=== PATIENT | female | born 1995 | race African-American/Black ===

== ENCOUNTER 2019-05-06 12:21 | Emergency (ER) | payer OTHER ==
[~2019-05-06] VITALS: Ht 177.8 cm; Wt 71.7 kg
[2019-05-06 12:27] VITALS: BP 142/73
[2019-05-06] MEDS ORDERED: FAMOTIDINE 20 MG TAB PO ONE (12:45)
[2019-05-06] MEDS ORDERED: PANTOPRAZOLE 40 MG TABEC PO ONE (12:45)
[2019-05-06] MEDS ORDERED: DICYCLOMINE HCL LIQUID 10 MG/5 ML UDC PO ONE (12:45)
--- NOTE | 2019-05-06 12:50 | NUR ---
C/O INTERMITTENT EPIGASTRIC BURNING PAIN X >1 WK DENIES N/V BUT ADMITS TO WATERY STOOLS. DENIES nausea and vomiting; SKIN IS PINK/WARM/DRY; AAOX4 WITH EVEN AND STEADY GAIT; PT DENIES ANY FEVER, CP, SOB, OR COUGH AT THIS TIME; PATIENT STATES PAIN OF 9/10 AT THIS TIME; VSS; PATIENT POSITIONED FOR COMFORT; HOB ELEVATED; BEDRAILS UP X1; BED DOWN. ER MD MADE AWARE OF PT STATUS.
--- NOTE | 2019-05-06 13:13 | NUR ---
Patient discharged with v/s stable. Written and verbal after care instructions given and explained. Patient alert, oriented and verbalized understanding of instructions. Ambulatory with steady gait. All questions addressed prior to discharge. ID band removed. Patient advised to follow up with PMD. Rx of Protonix and Pepcid given. Patient educated on indication of medication including possible reaction and side effects. Opportunity to ask questions provided and answered.
[2019-05-06 13:14] VITALS: BP 132/62
[2019-05-06 13:52] LABS: BILIRUBIN,URINE NEGATIVE (NEGATIVE); BLOOD, URINE NEGATIVE (NEGATIVE); COLOR,URINE YELLOW (YELLOW); LEUKOCYTE ESTERASE ,URINE NEGATIVE (NEGATIVE); NITRITE, URINE NEGATIVE (NEGATIVE); UGLUCOSE NEGATIVE (NEGATIVE)
[2019-05-06 13:54] LABS: APPEARANCE,URINE HAZY (CLEAR)
[2019-05-06 13:58] LABS: BARBITURATE, URINE NEG. ng/ml (NEG <=200); BENZODIAZEPINE, URINE NEG. ng/mL (NEG <=200); CANNABINOID, URINE POS. ng/mL (NEG <=50); COCAINE, URINE NEG. ng/mL (NEG <=300); OPIATE, URINE NEG. ng/mL (NEG <=2000); PHENCYCLIDINE SCREEN,URINE NEG. ng/mL (NEG <=25)
== END 2019-05-06 13:13 | disposition home or self-care (01) ==
LOC: MED 12:21
DX: K29.70 Gastritis, unspecified, without bleeding (principal); F41.9 Anxiety disorder, unspecified
CPT/HCPCS: 80305; 81003; 81025; 99283